=== PATIENT | female | born 1985 | race Caucasian/White ===

== ENCOUNTER 2022-05-01 11:40 | Outpatient (CLI) | payer OTHER, SELFPAY ==
[2022-05-01 22:26] LABS: Albumin* 4.8 g/dL (3.3-5.0); Chloride* 103 mmol/L (96-114)
[2022-05-01 22:27] LABS: Potassium* 4.1 mmol/L (3.6-5.1); Sodium* 140 mmol/L (135-149)
[2022-05-01 22:29] LABS: Alkaline Phosphatase* 53 U/L (40-150); Aspartate Amino Transferase* 33 U/L (12-35); Bilirubin Total* 1.8 mg/dL (0.1-1.5); Blood Urea Nitrogen* 15 mg/dL (5-24); Carbon Dioxide* 29 mmol/L (20-32); Cholesterol* 171 mg/dL (90-199); Creatinine* 0.7 mg/dL (0.5-1.5); Estimated Glomerular Filt Rate 113 ml/min; Glucose* 91 mg/dL (60-115); Total Protein* 7.9 g/dL (6.0-8.3)
[2022-05-01 22:30] LABS: Alanine Aminotransferase* 27 U/L (4-35); Calcium* 9.8 mg/dL (8.4-10.6); HDL Cholesterol* 80 mg/dL (>=50); LDL Cholesterol Calculated 76 mg/dL (<100); Triglycerides* 73 mg/dL (40-149)
[2022-05-01 22:50] LABS: Vitamin D 25 Hydroxy* 58 ng/mL (30-80)
== END 2022-05-01 11:41 | disposition home or self-care (01) ==
PROVIDERS: PCP Family Medicine; Visit Provider Family Medicine
DX: Z00.00 Encounter for general adult medical examination without abnormal findings (principal); R53.83 Other fatigue; Z13.6 Encounter for screening for cardiovascular disorders
CPT/HCPCS: 80053; 80061; 82306; 84443